=== PATIENT | female | born 2000 | race Two or more races ===

== ENCOUNTER 2020-11-28 15:29 | Emergency (ER) | payer OTHER ==
[~2020-11-28] VITALS: Ht 165.1 cm; Wt 68.0 kg
[2020-11-28] MEDS ORDERED: PEPCID AC20 MG PO (21:42)
== END 2020-11-28 21:45 ==
LOC: ER 15:29
DX: R53.81 Other malaise (principal)

== ENCOUNTER → 2024-05-25 | Emergency (ER) | payer OTHER ==
[~2024-05-25] VITALS: Ht 165.1 cm; Wt 72.6 kg
[~2024-05-25] MED LIST: PEPCID AC20 MG PO
== END | disposition left against medical advice (07) ==
LOC: ER 22:52
DX: Z53.21 Procedure and treatment not carried out due to patient leaving prior to being seen by health care provider (principal)